=== PATIENT | male | born 1955 | race Caucasian/White ===

== ENCOUNTER 2018-07-08 03:40 | Emergency (ER) | payer BC ==
--- NOTE | 2018-07-08 04:06 | ED Physician Chart ---
ED Chief Complaint/HPI - Patient Information Date Seen:: 07/08/18 Time Seen:: 03:58 Chief Complaint:: HEMATURIA LT SIDED ABD PAIN History of Present Illness:: 62 YR OLD MALE WITH RECURRENT HEMATURIA AND LT SIDED ABD PAIN TODAY Allergies:: Allergies Allergy/AdvReac Type Severity Reaction Status Date / Time Penicillins Allergy Verified 07/08/18 03:54 ED Review of Systems - Review of Systems General/Constitutional: No fever Skin: No skin lesions Eyes: No loss of vision ENT: No earache Neck: No neck pain Cardio Vascular: No chest pain Pulmonary: No SOB GI: Nausea, Vomiting G/U: Hematuria Musculoskeletal: No bone or joint pain, Back pain Psychiatric: No prior psych history Hematopoietic: No bruising Allergic/Immuno: No urticaria Neurological: No syncope ED Past Medical History - Past Medical History Past Medical History: Other (HEMATURIA UTI) ED Physical Exam - Physical Examination General/Constitutional: Well-developed, well-nourished Head: Atraumatic Eyes: Lids, conjuctiva normal Skin: Nl inspection ENMT: External ears, nose nl Neck: Nontender Respiratory: Nl effort/Exclusion Cardio Vascular: RRR Other GI comments:: LT GROIN TENDERNESS Other comments:: LT CVA TENDERNESS LT GROIN TEND Extremities: Full ROM Neuro/Psych: Alert/oriented ED Assessment - Assessment General Assessment: LT BACK PAIN LT GROIN PAIN HEMATURIA ED Septic Shock - . Is Septic Shock (SBP<90, OR Lactate>4 mmol\L) present?: No ED Reassessment (Disposition) - Reassessment Reassessment:: LT BACK PAIN LT GROIN PAIN HEMATURIA Reassessment Condition:: Improved - Patient Disposition Discharge/Transfer:: Home Condition at Disposition:: Stable
[2018-07-08] MEDS ORDERED: Sodium Chloride 0.9% 1,000 ML IV ONE ×2 (04:09→04:10)
[2018-07-08 04:26] LABS: URINE SOURCE CLEAN C
[2018-07-08 04:28] LABS: URINE BILIRUBIN NEGATIVE (NEGATIVE); URINE BLOOD LARGE (NEGATIVE); URINE GLUCOSE (UA) NEGATIVE (NEGATIVE); URINE KETONE TRACE mg/dL (NEGATIVE); URINE LEUKOCYTE ESTERASE NEGATIVE (NEGATIVE); URINE MICROSCOPIC INDICATED? YES; URINE NITRATE NEGATIVE (NEGATIVE); URINE PROTEIN 100 mg/dL (NEGATIVE); URINE UROBILINOGEN 0.2 E.U./dL (0.2 - 1.0)
[2018-07-08 04:44] LABS: % LYMPHOCYTES 30.5 % (20.0-50.0); % MONOCYTES 8.5 % (2.0-10.0); BASOPHILE ABSOLUTE 0.1 Th/cumm (0-0.2); EOSINOPHILE ABSOLUTE 0.2 Th/cmm (0.1-0.4); HEMATOCRIT 46.5 % (41.0-60); HEMOGLOBIN 15.7 gm/dL (12-16); LYMPHOCYTE ABSOLUTE 2.3 Th/cmm (1.5-3.0); MEAN CELL VOLUME 89.4 fl (80-99); MEAN CORPUSCULAR HEMOGLOBIN 30.2 pg (26.0-30.0); MEAN CORPUSCULAR HGB CONC 33.8 pg (28.0-36.0); MEAN PLATELET VOLUME 7.2 fl; MONOCYTE ABSOLUTE 0.6 Th/cmm (0.3-1.0); NEUTROPHILE ABSOLUTE 4.2 Th/cmm (1.8-8.0); PLATELET COUNT 221 Th/cmm (150-400); RED CELL DISTRIBUTION WIDTH 11.9 % (11.5-20.0); WHITE BLOOD COUNT 7.4 Th/cmm (4.8-10.8)
[2018-07-08 04:58] LABS: URINE CLARITY CLOUDY (CLEAR); URINE COLOR RED
[2018-07-08 05:00] LABS: URINE EPITHELIAL CELLS NONE SEEN /lpf (FEW); URINE WBC 25-50 /hpf (0-5)
[2018-07-08 05:01] LABS: URINE BACTERIA MANY /hpf (NONE SEEN)
[2018-07-08 06:48] LABS: ANION GAP 16.2 (7.0-16.0); CHLORIDE 102 mEq/L (98-107); POTASSIUM SERUM 3.2 mEq/L (3.5-5.1); SODIUM SERUM 141 mEq/L (136-145)
[2018-07-08 06:49] LABS: BUN - UREA NITROGEN 22 mg/dL (7-25); CREATININE - SERUM 1.1 mg/dL (0.7-1.3); GFR AFRICAN-AMERICAN > 60.0 ml/min (>90); GFR NON AFRICAN-AMERICAN > 60.0 ml/min; GLUCOSE 106 mg/dL (70-105)
[2018-07-08 06:50] LABS: ALBUMIN 3.7 gm/dL (4.2-5.5); BILIRUBIN,TOTAL 0.5 mg/dL (0.3-1.0); CALCIUM SERUM 8.8 mg/dL (8.6-10.3); TOTAL PROTEIN,SERUM 7.4 gm/dL (6.0-8.3)
[2018-07-08 06:51] LABS: ALKALINE PHOSPHATASE 83 U/L (34-104); SGOT 24 U/L (13-39); SGPT/ALT 39 U/L (7-52)
--- NOTE | 2018-07-08 09:16 | Diagnostic Imaging Report ---
CT scan abdomen and pelvis without intravenous contrast HISTORY: Pain, hematuria Total DLP equals 622 CTDI equals 12.7 Axial sections were obtained from the xiphoid process down to the pubic symphysis. The liver exhibits a normal size and contour. No focal lesions. The spleen appears normal. No abnormality seen in the region of the pancreas. An approximate 1.5 cm cyst noted near the right renal pelvis. No hydronephrosis. There is an approximate 4 mm calculus seen within the distal portion of the left ureter associated with mild hydronephrosis and mild to moderate dilatation of the proximal portion of the left ureter. No abnormal soft tissue masses seen within the pelvis. There is a moderately enlarged prostate gland. IMPRESSION: 1. Findings consistent with an approximate 4 mm calculus within the distal portion of the left ureter with mild left-sided hydronephrosis and mild dilatation of the proximal most portion of the left ureter. 2. Enlarged prostate gland
== END 2018-07-08 06:55 | disposition home or self-care (01) ==
LOC: ER 03:40
DX: R10.32 Left lower quadrant pain (principal); M54.9 Dorsalgia, unspecified; R31.9 Hematuria, unspecified; Z88.0 Allergy status to penicillin
CPT/HCPCS: 99284; 96365; 96375; 74176; 36415; 85025; 87086; 81001; 80053; 87040 ×2; J1885; J3370; J7030; Z7502

== ENCOUNTER 2018-08-10 04:53 | Emergency (ER) | payer BC ==
[2018-08-10] MEDS ORDERED: Sodium Chloride 0.9% 1,000 ML IV ONE ×2 (05:14→05:18)
--- NOTE | 2018-08-10 05:18 | ED Physician Chart ---
ED Chief Complaint/HPI - Patient Information Date Seen:: 08/10/18 Time Seen:: 05:13 Chief Complaint:: lt flank pain History of Present Illness:: 62 yr old male with hx of kidney stones lt side was here 2 wks ago for same now with recurrent lt flank pain no vomiting hematuria or fever Allergies:: Allergies Allergy/AdvReac Type Severity Reaction Status Date / Time Penicillins Allergy Verified 08/10/18 04:58 Vitals:: Vital Signs - 8 hr 08/10/18 04:55 Temp 97.1 F HR 71 RR 18 BP 186/109 O2 Sat % 97 ED Review of Systems - Review of Systems General/Constitutional: No fever, No chills, No weight loss, No weakness, No diaphoresis, No edema, No loss of appetite Skin: No skin lesions, No rash, No bruising Head: No headache, No light-headedness Eyes: No loss of vision, No pain, No diplopia ENT: No earache, No nasal drainage, No sore throat, No tinnitus Neck: No neck pain, No swelling, No thyromegaly, No stiffness, No mass noted Cardio Vascular: No chest pain, No palpitations, No PND, No orthopnea, No edema Pulmonary: No SOB, No cough, No sputum, No wheezing GI: No nausea, No vomiting, No diarrhea, No pain, No melena, No hematochezia, No constipation, No hematemesis G/U: Other (lt flank pain) Musculoskeletal: No bone or joint pain, No back pain, No muscle pain Endocrine: No polyuria, No polydipsia Psychiatric: No prior psych history, No depression, No anxiety, No suicidal ideation Hematopoietic: No bruising, No lymphadenopathy Allergic/Immuno: No urticaria, No angioedema Neurological: No syncope, No focal symptoms, No weakness, No paresthesia, No headache, No seizure, No dizziness, No confusion, No vertigo ED Past Medical History - Past Medical History Obtainable: Yes Past Medical History: Other (hx of lt kidney stone) Family Medical History - Family Member Mother History Unknown: Yes ED Physical Exam - Physical Examination General/Constitutional: Awake, Well-developed, well-nourished, Alert, No distress, GCS 15, Non-toxic appearing, Ambulatory Head: Atraumatic Eyes: Lids, conjuctiva normal, PERRL, EOMI Skin: Nl inspection, No rash, No skin lesions, No ecchymosis, Well hydrated, No lymphadenopathy ENMT: External ears, nose nl, Nasal exam nl, Lips, teeth, gums nl Neck: Nontender, Full ROM w/o pain, No JVD, No nuchal rigidity, No bruit, No mass, No stridor Respiratory: Nl effort/Exclusion, Clear to Auscultation, No Wheeze/Rhonchi/Rales Cardio Vascular: RRR, No murmur, gallop, rubs, NL S1 S2 GI: No tenderness/rebounding/guarding, No organomegaly, No hernia, Normal BS's, Nondistended, No mass/bruits, No McBurney tenderness : No CVA tenderness Other comments:: lt flank pain Extremities: No tenderness or effusion, Full ROM, normal strength in all extremities, No edema, Normal digits & nails Neuro/Psych: Alert/oriented, DTR's symmetric, Normal sensory exam, Normal motor strength, Judgement/insight normal, Mood normal, Normal gait, No focal deficits Misc: Normal back, No paraspinal tenderness ED Assessment - Assessment General Assessment: lt flank pain nephrolithiasis ED Septic Shock - . Is Septic Shock (SBP<90, OR Lactate>4 mmol\L) present?: No - <6hrs of presentation: Vital Signs: Vital Signs - 8 hr 08/10/18 04:55 Temp 97.1 F HR 71 RR 18 BP 186/109 O2 Sat % 97 ED Reassessment (Disposition) - Reassessment Reassessment:: lt flank pain Reassessment Condition:: Improved - Diagnosis Diagnosis:: as above - Patient Disposition Discharge/Transfer:: Home Condition at Disposition:: Stable
[2018-08-10 05:36] LABS: URINE SOURCE CLEAN C
[2018-08-10 05:41] LABS: URINE BILIRUBIN NEGATIVE (NEGATIVE); URINE BLOOD MODERATE (NEGATIVE); URINE GLUCOSE (UA) NEGATIVE (NEGATIVE); URINE KETONE TRACE mg/dL (NEGATIVE); URINE LEUKOCYTE ESTERASE NEGATIVE (NEGATIVE); URINE MICROSCOPIC INDICATED? YES; URINE NITRATE NEGATIVE (NEGATIVE); URINE PROTEIN NEGATIVE (NEGATIVE); URINE UROBILINOGEN 0.2 E.U./dL (0.2 - 1.0)
[2018-08-10 05:43] LABS: URINE COLOR YELLOW
[2018-08-10 05:48] LABS: % BASOPHILS 1.9 % (0.0-2.0); % EOSINOPHILS 3.3 % (0.0-5.0); % LYMPHOCYTES 28.5 % (20.0-50.0); % MONOCYTES 8.1 % (2.0-10.0); % NEUTROPHILS 58.2 % (40.0-80.0); BASOPHILE ABSOLUTE 0.1 Th/cumm (0-0.2); EOSINOPHILE ABSOLUTE 0.3 Th/cmm (0.1-0.4); HEMATOCRIT 47.3 % (41.0-60); HEMOGLOBIN 16.2 gm/dL (12-16); LYMPHOCYTE ABSOLUTE 2.2 Th/cmm (1.5-3.0); MEAN CELL VOLUME 89.6 fl (80-99); MEAN CORPUSCULAR HEMOGLOBIN 30.7 pg (26.0-30.0); MEAN CORPUSCULAR HGB CONC 34.3 pg (28.0-36.0); MEAN PLATELET VOLUME 7.6 fl; MONOCYTE ABSOLUTE 0.6 Th/cmm (0.3-1.0); NEUTROPHILE ABSOLUTE 4.4 Th/cmm (1.8-8.0); PLATELET COUNT 216 Th/cmm (150-400); RED BLOOD COUNT 5.28 Mil/cmm (4.30-5.70); RED CELL DISTRIBUTION WIDTH 12.2 % (11.5-20.0); WHITE BLOOD COUNT 7.6 Th/cmm (4.8-10.8)
[2018-08-10 05:59] LABS: URINE CLARITY SLIGHT HAZY (CLEAR); URINE WBC 0-2 /hpf (0-5)
[2018-08-10 06:00] LABS: URINE BACTERIA OCCASIONAL /hpf (NONE SEEN); URINE EPITHELIAL CELLS RARE /lpf (FEW)
[2018-08-10 06:02] LABS: ALB/GLOB RATIO 1.4 (1.0-1.8); ALBUMIN 4.1 gm/dL (4.2-5.5); ALKALINE PHOSPHATASE 77 U/L (34-104); ANION GAP 11.9 (7.0-16.0); BILIRUBIN,TOTAL 0.6 mg/dL (0.3-1.0); BUN - UREA NITROGEN 17 mg/dL (7-25); CALCIUM SERUM 9.1 mg/dL (8.6-10.3); CARBON DIOXIDE 27.6 mEq/L (21.0-31.0); CHLORIDE 106 mEq/L (98-107); CREATININE - SERUM 1.1 mg/dL (0.7-1.3); GFR AFRICAN-AMERICAN > 60.0 ml/min (>90); GFR NON AFRICAN-AMERICAN > 60.0 ml/min; GLUCOSE 120 mg/dL (70-105); POTASSIUM SERUM 3.5 mEq/L (3.5-5.1); SGOT 17 U/L (13-39); SGPT/ALT 26 U/L (7-52); SODIUM SERUM 142 mEq/L (136-145); TOTAL PROTEIN,SERUM 7.1 gm/dL (6.0-8.3)
--- NOTE | 2018-08-10 09:41 | Diagnostic Imaging Report ---
CT abdomen and pelvis without intravenous contrast Indication: Left flank pain, history of kidney stones Comparison: Previous CT abdomen and pelvis on 07/08/2018 Technique: Axial images were obtained from the lung bases to the bilateral proximal femurs without IV contrast. Coronal reconstructions were made. total DLP: 588, CTDI11.6 FINDINGS: Hypoventilatory atelectatic changes of the lung bases are noted. Assessment of the solid organs is limited due to lack of IV contrast. No evidence of focal hepatic, splenic, or pancreatic lesions. No focal adrenal lesions. Perinephric inflammatory changes are seen most pronounced on the left with mild left hydronephrosis and left hydroureter. Either 2 adjacent or single stone measuring 6 mm is seen within the left distal ureter. 1.4 cm right renal cyst is noted at the inferior pole 1 mm adjacent right renal stone is noted. Urinary bladder is underdistended limiting its evaluation. Mildly prominent prostate gland is noted. No evidence of bowel obstruction. Increased density in the appendix may be due to secretions. No appendicitis. There is mild haziness of the mesentery with a few nonenlarged lymph nodes. Small hiatal hernia is noted. There is minimal inflammatory change along the anterior peritoneal fat beneath the umbilicus. No free air free fluid. Degenerative changes of the spine are noted. Vacuum phenomena is noted including vacuum phenomena at anterior to the thecal sac at the L5/S1 level. There is mild atherosclerosis IMPRESSION: 2 adjacent or single stone within the left distal ureter measuring 6 mm causing mild left hydronephrosis with surrounding perinephric and periureteral inflammatory changes. 1 mm nonobstructive right renal stone. Adjacent 1.4 cm lower pole right renal cyst is noted. Mild haziness of the mesentery with few nonenlarged lymph nodes which may be due to underlying mesenteric adenitis. Mildly prominent prostate gland, please correlate clinically. Subcentimeter low-density lesion of right kidney too small to characterize, but probably representing a cyst. Ultrasound may further clarify. Degenerative changes. Mild atherosclerosis. Additional findings as above.
== END 2018-08-10 07:07 | disposition home or self-care (01) ==
LOC: ER 04:53
DX: R10.9 Unspecified abdominal pain (principal); Z87.442 Personal history of urinary calculi; Z88.0 Allergy status to penicillin
CPT/HCPCS: 99284; 96374; 74176; 36415; 85025; 87086; 81001; 80053; J1885; J7030; Z7502